=== PATIENT | female | born 1965 | race Caucasian/White ===

== ENCOUNTER 2017-03-25 13:30 | Emergency (ER) | payer OTHER ==
[~2017-03-25] VITALS: Ht 167.6 cm; Wt 73.8 kg
[~2017-03-25 13:30] MED LIST: LEVOTHROID75 MCG PO; NICOTINE PATCH1 EAC1 TD; PERCOCET 5/31 TABLET PO
[2017-03-25 15:21] LABS: EOSINOPHIL (%) 2.8 % (0-5); EOSINOPHIL COUNT 0.3 K/uL (0-0.3); HEMATOCRIT 38.9 % (36.0-46.0); IMMATURE GRANULOCYTE (%) 0.6 % (0.0-0.7); IMMATURE GRANULOCYTE COUNT 0.1 K/uL; INSTRUMENT ABS NEUTROPHIL CT 5.9 K/uL; LYMPHOCYTE COUNT 2.4 K/uL (1.0-2.8); MCH 31.6 PG (29.0-34.0); MCV 87.8 FL (83-99); MEAN PLAT.VOLUME 9.9 uM^3 (9.5-12.4); MONOCYTE (%) 6.5 % (3-12); MONOCYTE COUNT 0.6 K/uL (0-0.8); NEUTROPHIL (%) 63.6 % (45-76); NEUTROPHIL COUNT 5.9 K/uL (1.8-6.4); PLATELET COUNT 296 K/uL (156-360); RBC DIS.WIDTH-CV 11.8 % (11.8-14.6); RBC DIS.WIDTH-SD 37.9 % (39-53); RED BLOOD COUNT 4.43 M/uL (3.80-5.20); WHITE BLOOD COUNT 9.3 K/uL (4.1-10.2)
[2017-03-25 15:26] LABS: PROTHROMBIN TIME 11.3 SEC (10.2-12.9)
[2017-03-25 15:39] VITALS: BP 169/109
== END 2017-03-25 15:39 | disposition home or self-care (01) ==
LOC: EME 13:30
PROVIDERS: Physician Assistant Medical
DX: R04.0 Epistaxis (principal); I10 Essential (primary) hypertension; F17.200 Nicotine dependence, unspecified, uncomplicated; Z85.41 Personal history of malignant neoplasm of cervix uteri; Z90.710 Acquired absence of both cervix and uterus
CPT/HCPCS: 85025; 85610; 99281; 99283

== ENCOUNTER 2017-05-07 16:02 | Emergency (ER) | payer OTHER ==
[~2017-05-07] VITALS: Ht 167.6 cm; Wt 72.3 kg
[2017-05-07] MEDS ORDERED: PROTONIX40 MG PO (18:47)
[2017-05-07] MEDS ORDERED: MOBIC7.5 MG PO (18:47)
[2017-05-07] MEDS ORDERED: ZESTRIL40 MG PO (18:47)
[2017-05-07] MEDS ORDERED: NORCO 5/3251 TABLET PO (19:40)
[2017-05-07] MEDS ORDERED: MOTRIN600 MG PO (19:40)
[2017-05-07 20:06] VITALS: BP 115/74
== END 2017-05-07 20:07 | disposition home or self-care (01) ==
LOC: EME 16:02
DX: R07.81 Pleurodynia (principal); R05 Cough; R50.9 Fever, unspecified; M79.1 Myalgia; F17.200 Nicotine dependence, unspecified, uncomplicated; Z85.41 Personal history of malignant neoplasm of cervix uteri; Z90.710 Acquired absence of both cervix and uterus; Z88.5 Allergy status to narcotic agent
CPT/HCPCS: 71046; 80048; 85027; 99281; 99284